=== PATIENT | male | born 2000 | race American Indian/Alaskan Native ===

== ENCOUNTER 2018-01-05 07:56 | Emergency (ER) | payer OTHER ==
[~2018-01-05] VITALS: Ht 190.5 cm; Wt 88.5 kg
[2018-01-05] MEDS ORDERED: ERYT1OIN LEFTEYE (09:37)
== END 2018-01-05 09:43 | disposition home or self-care (01) ==
LOC: ER 07:56
DX: H57.12 Ocular pain, left eye (principal)
CPT/HCPCS: 99283; J7030

== ENCOUNTER 2020-10-09 15:54 | Emergency (ER) | payer OTHER ==
[~2020-10-09] VITALS: Ht 182.9 cm; Wt 93.0 kg
[~2020-10-09 15:54] MED LIST: ERYT1OIN LEFTEYE
== END 2020-10-09 16:40 | disposition home or self-care (01) ==
LOC: ER 15:54
DX: J30.2 Other seasonal allergic rhinitis (principal); Z20.822 Contact with and (suspected) exposure to COVID-19
CPT/HCPCS: 99282